=== PATIENT | female | born 1965 | race Caucasian/White ===

== ENCOUNTER 2019-02-14 17:49 | Emergency (ER) | payer BC ==
[2019-02-14 18:46] VITALS: TEMP 99.1; BMI 20.9
[2019-02-14 19:54] LABS: BASO % 0.6 % (0-2.0); EOS % 7.9 % (0-4.5); HEMATOCRIT 40.5 % (32.4-45.2); HEMOGLOBIN 13.1 GM/dl (10.7-15.3); LYMPH % 20.3 % (8-40); MCH 29.8 pg (25.7-33.7); MCHC 32.4 g/dl (32.0-36.0); MEAN CELL VOLUME 92.1 fl (80-96); MONO % 9.1 % (3.8-10.2); NEUT % 62.1 % (42.8-82.8); PLATELET COUNT 296 K/MM3 (134-434); RBC 4.39 M/mm3 (3.60-5.2); WHITE BLOOD COUNT 6.1 K/mm3 (4.0-10.8)
[2019-02-14 19:59] LABS: ALBUMIN 4.2 g/dl (3.4-5.0); BILIRUBIN,TOTAL 0.5 mg/dl (0.2-1); CALCIUM 9.2 mg/dl (8.5-10); CREATININE 0.7 mg/dl (0.55-1.3); POTASSIUM 4.1 mmol/L (3.5-5.1); TOT PROT 7.2 g/dl (6.4-8.2)
--- NOTE | 2019-02-14 19:59 | PDOC ---
Documentation entered by Laila Armendariz SCRIBE, acting as scribe for Etta Mortensen MD. Etta Mortensen MD: This documentation has been prepared by the [place] [employer], SCRIBE, under my direction and personally reviewed by me in its entirety. I confirm that the documentation accurately reflects all work, treatment, procedures, and medical decision making performed by me. History of Present Illness - General Chief Complaint: Chest Pain Stated Complaint: CHEST & ARM PAIN - History of Present Illness Initial Comments: 02/14/19 19:38 The patient is a 53 year old female who presents to the emergency department for evaluation of 1.5 days of intermittent L sided chest pain, where episodes lasting about 5 minutes. Nonradiating, nonexertional. Denies aggravating or alleviating symptoms. She exercises regularly and denies change in symptoms with activity. No heavy lifting or trauma. no cough or congestion. The patient also complains of left arm soreness today, which she notes is independent of her chest discomfort. Denies fever, chills, SOB, palpitation, dizziness, weakness, N, V, D, abdominal pain, bladder and bowel problems, leg swelling, No sick contacts or travel. No new changes in medications. she was seen by Dr Dougherty, her paint brush maker about 1 month ago, with unremarkable visit per report. no h/o DVT/PE, no calf pain or swelling. no ocp use. Allergies: sulfa and bacitracin. Past Medical History: HTN, HLD, asthma, osteoporosis Social history: Lives with family. No tobacco, ETOH or drug use. Surgical history: None reported. Meds: as documented in EMR Family history: NH/CAD/CABG in mother and father, in their 50-60s. HTN and HLD in siblings and mother/father. father PMD: Leland Payne Cardio: Ladonna 02/14/19 19:53 02/14/19 19:57 02/14/19 21:28 Past History - Past Medical History Allergies/Adverse Reactions: Allergies Allergy/AdvReac Type Severity Reaction Status Date / Time bacitracin Allergy Mild Verified 02/14/19 18:46 Sulfa (Sulfonamide Allergy Mild Verified 02/14/19 18:46 Antibiotics) Home Medications: Ambulatory Orders Albuterol Sulfate [Proventil HFA Inhaler -] 1 inh PO BID PRN 02/14/19 Aspirin [Aspirin EC] 81 mg PO DAILY 02/14/19 Budesonide [Pulmicort Flexhaler] 90 mcg IH BID 02/14/19 Denosumab [Prolia] 60 mg SQ ASDIR 02/14/19 Losartan Potassium [Cozaar] 25 mg PO DAILY 02/14/19 Montelukast Na [Singulair -] 10 mg PO DAILY 02/14/19 [place]-3 Acid Ethyl Esters [Lovaza -] 4,000 mg PO DAILY 02/14/19 Salmeterol Xinafoate [Serevent Diskus] 50 mcg IH BID 02/14/19 Simvastatin [Zocor -] 10 mg PO DAILY 02/14/19 COPD: No GI Disorders: Yes (INTERNAL HEMORRHOIDS) HTN: Yes Hypercholesterolemia: Yes Other medical history: BRONCHSPASM - Psycho Social/Smoking Cessation Hx Smoking History: Never smoked Hx Alcohol Use: No Drug/Substance Use Hx: No Review of Systems - Review of Systems Comments:: 02/14/19 19:39 Constitutional: no fevers or chills. HEENT: no headache or dizziness. No congestion. No visual/hearing disturbances. CVS: +chest pain. no syncope. no palpitations. Resp: no sob. No cough. Gastrointestinal: no abdominal pain, nausea or vomiting. Genitourinary: no urinary sx, hematuria. MUSCULOSKELETAL: +left arm pain. No neck or back pain. SKIN: no redness or skin changes, no discharge, no rash. No wounds. Hematologic: no easy bruising/bleeding. NEUROLOGIC: No headache, dizziness, LOC or altered mental status. No weakness, numbness or tingling. Psych: no anxiety or depression Allergic/Immunologic: no allergies All other systems reviewed and negative, or as documented in HPI. 02/14/19 19:55 *Physical Exam - Vital Signs Last Vital Signs Temp Pulse Resp BP Pulse Ox 99.1 F 76 15 120/84 100 02/14/19 17:50 02/14/19 20:00 02/14/19 20:00 02/14/19 20:00 02/14/19 20:00 - Physical Exam Comments: 02/14/19 19:40 General: Well appearing, awake and alert, NAD. HEENT: NCAT, PERRL, EOMI, clear conjunctiva, anicteric, moist mucous membranes , clear oropharynx, no oral lesions.. Neck: neck supple, FROM, no JVD. Resp: CTAB, normal and even respirations, no respiratory distress CVS: RRR, no murmurs, 2+ peripheral pulses throughout, no peripheral edema Abdomen: soft, NTND, no rebound or guarding. No CVAT. Back: nontender, normal inspection and ROM MSK: no edema, RODAS x4, ROM intact. No clubbing or cyanosis. normal bulk and tone. Extremities: no calf tenderness Neuro: alert, oriented appropriately; no focal neurologic deficits Skin: warm and well perfused, cap refill <2 sec, normal color 02/14/19 19:55 Heart Score/ECG Review - History History: Slightly suspicious - Electrocardiogram EKG: Normal - Age Age: 45-65 - Risk Factors Risk Factors Heart Score: Yes Hx Hypercholesterolemia, Yes Hx Hypertension, Yes Positive family hx of cardiac disease Based on the list above the patient has:: >/=3 risk factors or Hx atherosclerotic disease - Troponin Troponin: </= normal limit - Score Heart Score - Total: 3 #1 ECG reviewed & interpreted by me at: 18:10 General ECG Interpretation: Sinus Rhythm, Normal Rate, Normal Intervals Compared to previous ECG there are: No significant change 02/14/19 19:56 EKG normal sinus rhythm at 79 bpm, no interval abnormalities, narrow QRS, ST and T wave segments and morphology normal. Nonspecific T wave abnormality, flattening in III only, no contiguous lead changes. no ST elevations or depressions. ED Treatment Course - LABORATORY CBC & Chemistry Diagram: 02/14/19 19:30 02/14/19 19:30 - ADDITIONAL ORDERS Additional order review: Laboratory Results 02/14/19 02/14/19 19:30 19:30 Sodium 136 Potassium 4.1 Chloride 107 Carbon Dioxide 23 Anion Gap 6 L BUN 10.0 Creatinine 0.7 Est GFR (CKD-EPI)AfAm 115.45 Est GFR (CKD-EPI)NonAf 99.62 Random Glucose 99 Calcium 9.2 Total Bilirubin 0.5 AST 28 ALT 24 Alkaline Phosphatase 50 Troponin I < 0.03 Total Protein 7.2 Albumin 4.2 02/14/19 19:30 RBC 4.39 MCV 92.1 MCHC 32.4 RDW 12.0 MPV 8.0 Neutrophils % 62.1 Lymphocytes % 20.3 Monocytes % 9.1 Eosinophils % 7.9 H Basophils % 0.6 - RADIOLOGY Radiology Studies Ordered: Category Date Time Status CHEST PA & LAT [RAD] Stat Radiology 02/14/19 19:15 Taken Chest X-Ray Result: No Infiltrates Radiograph Interpretation: 02/14/19 20:00 Chest x-ray is clear, normal cardiac silhouette, no evidence of edema effusion or infiltrate, no evidence of pneumothorax, trachea is midline and patent Medical Decision Making - Medical Decision Making 02/14/19 19:58 Vital Signs Temp Pulse Resp BP Pulse Ox 99.1 F 74 15 123/90 100 02/14/19 17:50 02/14/19 19:44 02/14/19 19:44 02/14/19 19:44 02/14/19 19:44 DDx chest pain: ACS, coronary vasospasm, NSTEMI, arrhythmia, unstable angina, PE , dissection, PUD, esophageal spasm, GERD, gastritis, costochondritis, pneumonia , pleurisy, pericarditis/myocarditis. dehydration, electrolyte/metabolic derangements. No evidence of ACS, pericarditis, myocarditis, pulmonary embolism, pneumothorax , pneumonia, Zoster, or esophageal perforation. Historically not abrupt in onset , tearing or ripping, pulses symmetric, no evidence of aortic dissection. EKG normal sinus rhythm, no interval abnormalities, narrow QRS, ST and T wave segments and morphology normal. Nonspecific T wave abnormalities, unchanged from prior provided by patient. Chest pain HEART score 3 which denotes Low risk and probability for ACS, less than 1% risk for MACE at 4-6 wks (for age, medical problems and family history) Laboratory results are within normal limits including her electrolytes, no evidence of anemia, no signs of infection. Troponin is negative x1 which is reassuring, she is chest pain-free, no symptoms currently. She is low risk chest pain per the heart score algorithm so we will discharge with close cardiology follow-up 02/14/19 19:59 02/14/19 20:18 Discharge - Discharge Information Problems reviewed: Yes Clinical Impression/Diagnosis: Chest pain Qualifiers: Chest pain type: unspecified Qualified Code(s): R07.9 - Chest pain, unspecified Condition: Good Disposition: HOME - Admission No - Follow up/Referral Referrals: Leland Payne [Primary Care Provider] - Jameson Dougherty [Non Staff, Medical] - - Patient Discharge Instructions Patient Printed Discharge Instructions: DI for Atypical Chest Pain Additional Instructions: 1) Please follow-up with your primary care doctor in the next 1-2 days. Please call tomorrow for for any urgent issues. Patient follow-up with your paint brush maker Dr. Dougherty 2) You were given a copy of the tests performed today. Please bring the results with you and review them with your primary care doctor. Your laboratory / imaging results were normal, including EKG and troponin 3) If you have any worsening of symptoms or any other concerns please return to the ED immediately. Return if worsening symptoms including fevers, headache, vomiting, visual or hearing disturbances, abdominal pain, chest pain, shortness of breath, syncope, dehydration, inability to take things by mouth/vomiting, altered mental status, or worsening concerning symptoms. 4) Please continue taking your home medications as directed. Stay well hydrated and rest adequately. Make an appointment. If you cannot follow-up with your primary care doctor please return to the ED - Post Discharge Activity
[2019-02-14 20:16] VITALS: BP 120/84; PULSE 76
--- NOTE | 2019-02-15 13:17 | EKG ---
Test Reason : Blood Pressure : / mmHG Vent. Rate : 079 BPM Atrial Rate : 079 BPM P-R Int : 132 ms QRS Dur : 074 ms QT Int : 400 ms P-R-T Axes : 072 041 048 degrees QTc Int : 458 ms NORMAL SINUS RHYTHM POSSIBLE LEFT ATRIAL ENLARGEMENT NO PREVIOUS ECGS AVAILABLE Confirmed by ALEXX MALHOTRA MD ([id number]) on 02/15/2019 1:17:12 PM Referred By: DR MARTINEZ Confirmed By:ALEXX MALHOTRA MD
== END 2019-02-14 20:47 | disposition home or self-care (01) ==
LOC: FER 17:49
DX: R07.9 Chest pain, unspecified (principal); E78.00 Pure hypercholesterolemia, unspecified; I10 Essential (primary) hypertension; Z82.49 Family history of ischemic heart disease and other diseases of the circulatory system; E78.5 Hyperlipidemia, unspecified; M81.0 Age-related osteoporosis without current pathological fracture; J98.01 Acute bronchospasm; Z88.2 Allergy status to sulfonamides; Z88.8 Allergy status to other drugs, medicaments and biological substances
CPT/HCPCS: 36415; 71046-TC-FY; 80053; 84484; 85025; 93005; 99284-25

== ENCOUNTER 2022-08-27 02:30 | Emergency (ER) | payer BC ==
[2022-08-27 02:48] VITALS: BP 155/97; PULSE 85; RESP 16; TEMP 98; BMI 21.2
[2022-08-27 03:41] LABS: INR 1.04 (0.83-1.09); PROTHROMBIN TIME (PATIENT) 12.1 SEC (9.7-13.0)
[2022-08-27 03:43] LABS: BASO % 0.6 % (0-2.0); EOS % 4.8 % (0-4.5); HEMATOCRIT 34.9 % (32.4-45.2); HEMOGLOBIN 11.7 GM/dL (10.7-15.3); LYMPH % 38.4 % (8-40); MCH 29.7 pg (25.7-33.7); MCHC 33.4 g/dl (32.0-36.0); MEAN PLT VOLUME 7.6 fl (7.5-11.1); MONO % 11.6 % (3.8-10.2); NEUT % 44.6 % (42.8-82.8); PLATELET COUNT 238 10^3/uL (134-434); RBC 3.92 M/mm3 (3.60-5.2); RDW 13.6 % (11.6-15.6); WHITE BLOOD COUNT 6.9 K/mm3 (4.0-10.0)
[2022-08-27 04:01] LABS: POTASSIUM 3.7 mmol/L (3.5-5.1)
[2022-08-27 04:03] LABS: ALBUMIN 3.9 g/dl (3.4-5.0); BLOOD UREA NITROGEN 16.7 mg/dL (7-18)
[2022-08-27 04:06] LABS: CREATININE 0.8 mg/dL (0.55-1.3)
[2022-08-27 04:08] LABS: BILIRUBIN,TOTAL 0.2 mg/dL (0.2-1); TOT PROT 7.1 g/dl (6.4-8.2)
== END 2022-08-27 04:28 | disposition home or self-care (01) ==
LOC: FER 02:30
DX: R07.89 Other chest pain (principal); R06.02 Shortness of breath
CPT/HCPCS: 36415; 80053; 84484; 85025; 85379; 85610; 93005; 99284-25